=== PATIENT | male | born 1990 | race Caucasian/White ===

== ENCOUNTER 2017-04-07 18:54 | Emergency (ER) | payer OTHER ==
[~2017-04-07] VITALS: Ht 182.9 cm; Wt 90.7 kg
[2017-04-07] MEDS ORDERED: DIPHTH,PERTUSS(ACELL),TET TOX 0.5 ML DISP.SYRIN. VAX IM ONE (19:30)
[2017-04-07] MEDS ORDERED: LIDOCAINE 2%/EPI 1:100,000 20 ML VIAL. IJ ONE (19:30)
[2017-04-07 19:56] LABS: AMPHETAMINE/METHAMPHETAMINE NEG (NEG); BARBITURATES NEG (NEG); BENZODIAZEPINES NEG (NEG); CANNABINOIDS NEG (NEG); COCAINE NEG (NEG); METHADONE NEG (NEG); OPIATES NEG (NEG); PHENCYCLIDINE NEG (NEG)
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
[2017-04-07 20:09] LABS: BASO % 0 % (0-3); EOS % 0 % (0-3); HEMATOCRIT 43.5 % (39.0-53.0); LYMPH # 0.9 x10^3/uL (1.0-4.8); LYMPH % 6 % (24-48); MEAN CORPUSCULAR HEMOGLOBIN 33 pg (25-35); MEAN CORPUSCULAR HGB CONC 35 g/dL (31-37); MEAN CORPUSCULAR VOLUME 95 fL (79-100); MONO # 1.4 x10^3/uL (0.0-1.1); MONO % 9 % (0-9); NEUT # 13.2 x10^3uL (1.8-7.7); NEUT % 85 % (31-73); PLATELET COUNT 276 x10^3/uL (140-400); RED BLOOD COUNT 4.59 x10^6/uL (4.30-5.70); WHITE BLOOD COUNT 15.5 x10^3/uL (4.0-11.0)
[2017-04-07 20:14] LABS: POTASSIUM 3.8 mmol/L (3.5-5.1)
[2017-04-07] MEDS ORDERED: IOHEXOL 300 MG/ML 75 ML VIAL. IV ONE (20:15)
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
[2017-04-07 20:50] LABS: CREATININE 1.2 mg/dL (0.7-1.3); GFR 72.6
[2017-04-07] MEDS ORDERED: cefTRIAXone IM 1 GM VIAL IM ONE (21:30)
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
[2017-04-07 21:43] LABS: % BANDS 1 % (0-9); % LYMPHS 10 % (24-48); % MONOS 7 % (0-10); % SEGS 82 % (35-66)
[2017-04-07 21:44] LABS: PLT ESTIMATE ADEQUATE (ADEQUATE)
[2017-04-07] MEDS ORDERED: IV NORMAL SALINE 100ML 100 ML ONE (21:44)
[2017-04-07] MEDS ORDERED: oxyCODONE/APAP 10/325 1 TAB TABLET PO ONE (21:45)
[2017-04-07] MEDS ORDERED: CEPH-264 PO (21:47)
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
[2017-04-07] MEDS ORDERED: diphenhydrAMINE 50 MG/ML VIAL ONE (22:23)
[2017-04-07 22:30] VITALS: BP 137/75
[2017-04-07] MEDS ORDERED: diphenhydrAMINE 50 MG/ML VIAL IV ONE (22:30)
--- NOTE | 2017-04-07 22:30 | RAD ---
CTA scan of the Chest with Contrast (Pulmonary Embolism protocol) 04/07/2017 Clinical History: Chest pain and shortness of breath. Technique: After the intravenous administration of 75 cc of Omnipaque 300, contiguous, 0.625 mm axial sections were obtained through the chest. 2.5 mm axial and 3D MIP coronal and sagittal reconstructed images were obtained. One or more of the following individualized dose reduction techniques were utilized for this study: 1. Automated exposure control. 2. Adjustment of the mA and/or kV according to patient size. 3. Use of iterative reconstruction technique. Findings: No filling defect is seen within the major branches of either pulmonary artery. There is no CT evidence of pulmonary embolism. The heart and thoracic aorta are within normal limits. Minimal dependent subsegmental atelectasis is seen involving both lungs. No pulmonary infiltrate, pleural effusion or pneumothorax is seen. Impression: There is no CT evidence of pulmonary embolism. Electronically signed by: Tony Baires MD (04/07/2017 10:27 PM) [facility]
== END 2017-04-07 22:38 | disposition home or self-care (01) ==
LOC: ER 18:54
DX: S02.2XXA Fracture of nasal bones, initial encounter for closed fracture (principal); S02.82XA Fracture of other specified skull and facial bones, left side, initial encounter for closed fracture; S02.81XA Fracture of other specified skull and facial bones, right side, initial encounter for closed fracture; S02.40FA Zygomatic fracture, left side, initial encounter for closed fracture; S09.90XD Unspecified injury of head, subsequent encounter; S01.81XA Laceration without foreign body of other part of head, initial encounter; S01.111A Laceration without foreign body of right eyelid and periocular area, initial encounter; D72.829 Elevated white blood cell count, unspecified; J45.909 Unspecified asthma, uncomplicated; Z88.0 Allergy status to penicillin; Y00.XXXA Assault by blunt object, initial encounter; Y93.89 Activity, other specified; Y99.8 Other external cause status; Y92.89 Other specified places as the place of occurrence of the external cause
CPT/HCPCS: 12013; 36415; 70450; 70486; 71275; 72125; 80051; 80307; 82565; 85007; 85025; 85610; 85730; 90471; 90715; 96365; 96375; 99285; J0696; J1200; Q9967; G0479